=== PATIENT | female | born 1955 ===

== ENCOUNTER 2025-01-27 09:46 | Outpatient (CLI) | payer MEDICARE, SELFPAY ==
--- NOTE | 2025-01-27 09:57 | CT_ITS ---
WS: [id number] LDCT LUNG CANCER SCREENING TECHNIQUE: Noncontrast CT of the chest with coronal and sagittal reformatted images. CLINICAL INFORMATION: NICOTINE DEPENDENCE, CIGARETTES COMPARISON: None. DLP: 53.10 mGy.cm DIvol: Mean CTDIvol: 0.70 (mGy) All CT scans at [facility] use at least one of these dose optimization techniques: automated exposure control; mA and/or kV adjustment per patient size (includes targeted exams where dose is matched to clinical indication); or iterative reconstruction. FINDINGS: Advanced chronic emphysematous changes. Partial LEFT lung resection with volume loss LEFT hemithorax and mediastinal shift. Fibrosis in the lung apices. No suspicious pulmonary parenchymal abnormalities. Parenchymal scarring RIGHT upper lobe. Bilateral breast implants with capsular calcification worse on the RIGHT. Aortic calcification. Coronary calcification. No mediastinal or hilar lymphadenopathy. No axillary lymphadenopathy. Surgical clips LEFT axilla. Tiny esophageal hiatal hernia. Thoracolumbar scoliosis with moderate kyphosis. CT/CT lung screening [id number] IMPRESSION: LUNG-RADS: 2-Benign Appearance or Behavior FOLLOW UP: 12 Month: Continue annual screening with LDCT
== END 2025-01-27 09:47 | disposition home or self-care (01) ==
LOC: RAD 09:52
PROVIDERS: Visit Provider Electrodiagnostic Medicine
DX: Z12.2 Encounter for screening for malignant neoplasm of respiratory organs (principal); F17.210 Nicotine dependence, cigarettes, uncomplicated; J43.9 Emphysema, unspecified; J84.10 Pulmonary fibrosis, unspecified; M41.9 Scoliosis, unspecified
CPT/HCPCS: 71271